=== PATIENT | male | born 1995 | race Caucasian/White ===

== ENCOUNTER 2020-08-12 15:28 | Inpatient (IN) | payer MEDICAID ==
[~2020-08-12] VITALS: Ht 193 cm; Wt 97.1 kg
[2020-08-12] MEDS ORDERED: LORazepam 2 MG TABLET PO PRN (18:00)
[2020-08-12] MEDS ORDERED: HALOPERIDOL 5 MG TABLET PO PRN (18:00)
[2020-08-12] MEDS ORDERED: ZOLPIDEM TARTRATE 10 MG TABLET PO PRN (18:00)
[2020-08-12] MEDS ORDERED: ONDANSETRON HCL 4 MG TABLET PO PRN (23:45)
[2020-08-12] MEDS ORDERED: OMEPRAZOLE 20 MG CAPSULE PO PRN (23:45)
[2020-08-12] MEDS ORDERED: DOCUSATE SODIUM 100 MG CAPSULE PO PRN (23:45)
[2020-08-12] MEDS ORDERED: MAG HYDROX/AL HYDROX/SIMETH ES 30 ML SUSPENSION UDCUP PO PRN (23:45)
[2020-08-12] MEDS ORDERED: BENZOCAINE/MENTHOL LOZENGE PO PRN (23:45)
[2020-08-12] MEDS ORDERED: BACITRACIN 28 GM OINTMENT TP PRN (23:45)
[2020-08-12] MEDS ORDERED: ACETAMINOPHEN 325 MG TABLET PO PRN (23:45)
[2020-08-12] MEDS ORDERED: MAGNESIUM HYDROXIDE SUSPENSION 30 ML UDCUP PO PRN (23:45)
[2020-08-12] MEDS ORDERED: PETROLATUM,WHITE 28 GM JELLY TP PRN (23:45)
[2020-08-12] MEDS ORDERED: CloNIDine HCL 0.1 MG TABLET PO PRN (23:45)
[2020-08-12] MEDS ORDERED: LOPERAMIDE HCL 2 MG CAPSULE PO PRN (23:45)
[2020-08-12] MEDS ORDERED: IBUPROFEN 600 MG TABLET PO PRN (23:45)
[2020-08-12] MEDS ORDERED: ALBUTEROL SULFATE HFA 90 MCG/PUFF 8 GM INHALER IH PRN (23:45)
[2020-08-13] MEDS: BENZTROPINE MESYLATE 2 MG TABLET PO SCH (20:25)
[2020-08-13] MEDS: HALOPERIDOL 10 MG TABLET PO SCH (20:25)
[2020-08-13] MEDS: PALIPERIDONE 9 MG ER TABLET PO SCH (20:25)
[2020-08-14 07:13] LABS: CHOL/HDL RATIO 5.1 (4.2-7.3); FREE T4 (FREE THYROXINE) 1.22 ng/dL (0.76-1.46)
[2020-08-14] MEDS: PALIPERIDONE 9 MG ER TABLET PO SCH (20:18)
[2020-08-14] MEDS: HALOPERIDOL 10 MG TABLET PO SCH (20:18)
[2020-08-14] MEDS: BENZTROPINE MESYLATE 2 MG TABLET PO SCH (20:18)
[2020-08-15] MEDS: PALIPERIDONE 9 MG ER TABLET PO SCH (20:16)
[2020-08-15] MEDS: HALOPERIDOL 10 MG TABLET PO SCH (20:16)
[2020-08-15] MEDS: BENZTROPINE MESYLATE 2 MG TABLET PO SCH (20:16)
[2020-08-16] MEDS: OMEGA-3/DHA/EPA/FISH OIL 1,000 MG CAPSULE PO SCH (09:00)
[2020-08-16] MEDS: BENZTROPINE MESYLATE 2 MG TABLET PO SCH (20:39)
[2020-08-16] MEDS: HALOPERIDOL 10 MG TABLET PO SCH (20:40)
[2020-08-16] MEDS: PALIPERIDONE 9 MG ER TABLET PO SCH (20:40)
[2020-08-17] MEDS: OMEGA-3/DHA/EPA/FISH OIL 1,000 MG CAPSULE PO SCH (09:00)
[2020-08-17] MEDS: BENZTROPINE MESYLATE 2 MG TABLET PO SCH (20:45)
[2020-08-17] MEDS: PALIPERIDONE 9 MG ER TABLET PO SCH (20:45)
[2020-08-17] MEDS: HALOPERIDOL 10 MG TABLET PO SCH (20:45)
[2020-08-18] MEDS: OMEGA-3/DHA/EPA/FISH OIL 1,000 MG CAPSULE PO SCH (08:10)
[2020-08-18] MEDS: HALOPERIDOL 10 MG TABLET PO SCH (20:44)
[2020-08-18] MEDS: BENZTROPINE MESYLATE 2 MG TABLET PO SCH (20:44)
[2020-08-18] MEDS: PALIPERIDONE 9 MG ER TABLET PO SCH (20:45)
[2020-08-19] MEDS: OMEGA-3/DHA/EPA/FISH OIL 1,000 MG CAPSULE PO SCH (07:44)
[2020-08-19] MEDS: PALIPERIDONE 9 MG ER TABLET PO SCH ×2 (20:19→20:35)
[2020-08-19] MEDS: BENZTROPINE MESYLATE 2 MG TABLET PO SCH ×2 (20:19→20:35)
[2020-08-19] MEDS: HALOPERIDOL 10 MG TABLET PO SCH ×2 (20:19→20:35)
[2020-08-20 08:00] VITALS: BP 145/60
[2020-08-20] MEDS: OMEGA-3/DHA/EPA/FISH OIL 1,000 MG CAPSULE PO SCH (08:17)
[2020-08-20] MEDS: PALIPERIDONE 9 MG ER TABLET PO SCH (20:29)
[2020-08-20] MEDS: BENZTROPINE MESYLATE 2 MG TABLET PO SCH (20:29)
[2020-08-20] MEDS: HALOPERIDOL 10 MG TABLET PO SCH (20:29)
[2020-08-21] MEDS: OMEGA-3/DHA/EPA/FISH OIL 1,000 MG CAPSULE PO SCH (09:00)
[2020-08-21] MEDS: BENZTROPINE MESYLATE 2 MG TABLET PO SCH (21:00)
[2020-08-21] MEDS: PALIPERIDONE 9 MG ER TABLET PO SCH (21:00)
[2020-08-21] MEDS: HALOPERIDOL 10 MG TABLET PO SCH (21:00)
[2020-08-22] MEDS: OMEGA-3/DHA/EPA/FISH OIL 1,000 MG CAPSULE PO SCH ×2 (09:00→09:56)
[2020-08-22 16:38] VITALS: BP 132/69
[2020-08-22] MEDS: HALOPERIDOL 10 MG TABLET PO SCH (20:26)
[2020-08-22] MEDS: BENZTROPINE MESYLATE 2 MG TABLET PO SCH (20:26)
[2020-08-22] MEDS: PALIPERIDONE 9 MG ER TABLET PO SCH (20:26)
[2020-08-23] MEDS: OMEGA-3/DHA/EPA/FISH OIL 1,000 MG CAPSULE PO SCH (09:00)
[2020-08-23] MEDS: HALOPERIDOL 10 MG TABLET PO SCH (20:36)
[2020-08-23] MEDS: BENZTROPINE MESYLATE 2 MG TABLET PO SCH (20:36)
[2020-08-23] MEDS: PALIPERIDONE 9 MG ER TABLET PO SCH (20:36)
[2020-08-24] MEDS: OMEGA-3/DHA/EPA/FISH OIL 1,000 MG CAPSULE PO SCH (09:26)
[2020-08-24 16:34] VITALS: BP 146/86
[2020-08-24] MEDS: HALOPERIDOL 10 MG TABLET PO SCH (20:10)
[2020-08-24] MEDS: PALIPERIDONE 9 MG ER TABLET PO SCH (20:10)
[2020-08-24] MEDS: BENZTROPINE MESYLATE 2 MG TABLET PO SCH (20:10)
[2020-08-25] MEDS: OMEGA-3/DHA/EPA/FISH OIL 1,000 MG CAPSULE PO SCH (08:10)
[2020-08-25 08:11] VITALS: BP 158/96
[2020-08-25 15:49] LABS: COVID AG,FIA SOURCE NASOPHARYNGEAL
[2020-08-25 16:32] VITALS: BP 140/90
[2020-08-25] MEDS: HALOPERIDOL 10 MG TABLET PO SCH (20:03)
[2020-08-25] MEDS: PALIPERIDONE 9 MG ER TABLET PO SCH (20:03)
[2020-08-25] MEDS: BENZTROPINE MESYLATE 2 MG TABLET PO SCH (20:03)
[2020-08-26] MEDS: OMEGA-3/DHA/EPA/FISH OIL 1,000 MG CAPSULE PO SCH (08:22)
[2020-08-26 08:30] VITALS: BP 140/81
[2020-08-26 16:24] VITALS: BP 110/73
[2020-08-26] MEDS: PALIPERIDONE 9 MG ER TABLET PO SCH (20:26)
[2020-08-26] MEDS: HALOPERIDOL 10 MG TABLET PO SCH (20:26)
[2020-08-26] MEDS: BENZTROPINE MESYLATE 2 MG TABLET PO SCH (20:26)
[2020-08-27] MEDS: OMEGA-3/DHA/EPA/FISH OIL 1,000 MG CAPSULE PO SCH (09:00)
[2020-08-27 10:37] VITALS: BP 119/60
[2020-08-27 16:00] VITALS: BP 137/77
[2020-08-27] MEDS: BENZTROPINE MESYLATE 2 MG TABLET PO SCH (20:02)
[2020-08-27] MEDS: PALIPERIDONE 9 MG ER TABLET PO SCH (20:02)
[2020-08-27] MEDS: HALOPERIDOL 10 MG TABLET PO SCH (20:02)
[2020-08-28] MEDS: OMEGA-3/DHA/EPA/FISH OIL 1,000 MG CAPSULE PO SCH (09:00)
[2020-08-28 16:00] VITALS: BP 128/91
[2020-08-28] MEDS: HALOPERIDOL 10 MG TABLET PO SCH (20:34)
[2020-08-28] MEDS: BENZTROPINE MESYLATE 2 MG TABLET PO SCH (20:34)
[2020-08-28] MEDS: PALIPERIDONE 9 MG ER TABLET PO SCH (20:34)
[2020-08-29] MEDS: OMEGA-3/DHA/EPA/FISH OIL 1,000 MG CAPSULE PO SCH (08:38)
[2020-08-29] MEDS: BENZTROPINE MESYLATE 2 MG TABLET PO SCH (20:29)
[2020-08-29] MEDS: HALOPERIDOL 5 MG TABLET PO SCH (20:29)
[2020-08-29] MEDS: PALIPERIDONE 9 MG ER TABLET PO SCH (20:29)
[2020-08-30] MEDS: OMEGA-3/DHA/EPA/FISH OIL 1,000 MG CAPSULE PO SCH (09:00)
[2020-08-30 16:28] VITALS: BP 131/78
[2020-08-30] MEDS: PALIPERIDONE 9 MG ER TABLET PO SCH (20:39)
[2020-08-30] MEDS: HALOPERIDOL 5 MG TABLET PO SCH (20:39)
[2020-08-30] MEDS: BENZTROPINE MESYLATE 2 MG TABLET PO SCH (20:39)
[2020-08-31] MEDS: OMEGA-3/DHA/EPA/FISH OIL 1,000 MG CAPSULE PO SCH (09:00)
[2020-08-31] MEDS: PALIPERIDONE 9 MG ER TABLET PO SCH (20:36)
[2020-08-31] MEDS: BENZTROPINE MESYLATE 2 MG TABLET PO SCH (20:36)
[2020-08-31] MEDS: HALOPERIDOL 10 MG TABLET PO SCH (20:37)
[2020-09-01] MEDS: OMEGA-3/DHA/EPA/FISH OIL 1,000 MG CAPSULE PO SCH (09:00)
[2020-09-01] MEDS: HALOPERIDOL 10 MG TABLET PO SCH (20:24)
[2020-09-01] MEDS: BENZTROPINE MESYLATE 2 MG TABLET PO SCH (20:24)
[2020-09-01] MEDS: PALIPERIDONE 9 MG ER TABLET PO SCH (20:50)
[2020-09-02] MEDS: OMEGA-3/DHA/EPA/FISH OIL 1,000 MG CAPSULE PO SCH (09:00)
[2020-09-02] MEDS: BENZTROPINE MESYLATE 2 MG TABLET PO SCH (20:37)
[2020-09-02] MEDS: PALIPERIDONE 9 MG ER TABLET PO SCH (20:37)
[2020-09-02] MEDS ORDERED: HALOPERIDOL 10 MG TABLET PO SCH (21:00)
[2020-09-03] MEDS: OMEGA-3/DHA/EPA/FISH OIL 1,000 MG CAPSULE PO SCH (08:59)
[2020-09-03] MEDS: PALIPERIDONE 9 MG ER TABLET PO SCH (20:28)
[2020-09-03] MEDS: BENZTROPINE MESYLATE 2 MG TABLET PO SCH (20:28)
[2020-09-03] MEDS ORDERED: HALOPERIDOL 10 MG TABLET PO SCH (21:00)
[2020-09-04] MEDS: OMEGA-3/DHA/EPA/FISH OIL 1,000 MG CAPSULE PO SCH (09:00)
[2020-09-04] MEDS ORDERED: PALI9TAB15 PO (12:33)
[2020-09-04] MEDS ORDERED: HALO10 PO (12:33)
[2020-09-04] MEDS ORDERED: BENZ2TAB10 PO (12:33)
[2020-09-04] MEDS ORDERED: OMEG-135 PO (12:39)
== END 2020-09-04 15:25 | disposition home or self-care (01) | DRG 750 ==
LOC: 3EC 21:45 → 3EI 08-19 16:00
PROVIDERS: ADMIT Psychiatry & Neurology Psychiatry; ATTEND Psychiatry & Neurology Psychiatry
DX: F20.0 Paranoid schizophrenia (principal); Z91.19 Patient's noncompliance with other medical treatment and regimen; F41.9 Anxiety disorder, unspecified; F94.0 Selective mutism; Z20.822 Contact with and (suspected) exposure to COVID-19; G47.00 Insomnia, unspecified; K59.00 Constipation, unspecified
CPT/HCPCS: 80061; 84436; 84439; A9575